=== PATIENT | female | born 1990 | race Caucasian/White ===

== ENCOUNTER 2016-10-15 12:39 | Emergency (ER) | payer SELFPAY ==
[~2016-10-15] VITALS: Ht 170.2 cm; Wt 53.0 kg
[~2016-10-15 12:39] MED LIST: MAGICADU2 SWISH-SWAL
[2016-10-15 12:59] VITALS: BP 123/92; PULSE 71; RESP 16; TEMP 98.6; O2SAT 98
--- NOTE | 2016-10-15 13:55 | PD ---
HPI Chief Complaint: ENT Complaint Time Seen by Provider: 13:49 Travel History International Travel<30 days: No Contact w/Intl Traveler<30days: No Traveled to known affect area: No History of Present Illness HPI Patient states she began having pain with fever approximately 3 weeks ago in her left ear. Fever has since resolved and began having yellow and clear drainage from her left ear 2 weeks ago. Denies any change in hearing or radiation of the pain. Denies any difficulty swallowing, cough, shortness of breath, chest pain, or headache. Denies anything making it better. States drainage is primarily occurring at night while she is lying down. PFSH Past Medical History Hx Anticoagulant Therapy: No Anxiety: Yes Depression: Yes Chest Pain: Yes Diminished Hearing: No Immunizations Current: Yes Tetanus Vaccination: > 5 Years Influenza Vaccination: No ?: Not LMP: 3 DAYS Menopausal: No Past Surgical History Surgical History: No Previous Surgery Social History Alcohol Use: Yes (OCCAS-MIX DRINKS ,BEER) Tobacco Use: Yes (09/03 ppd) Substance Use: No Allergies-Medications (Allergen,Severity, Reaction): Coded Allergies: No Known Allergies (Verified , 10/15/16) Reported Meds & Prescriptions Reported Meds & Active Scripts Active Amoxicillin 875 Mg Tab 875 Mg PO BID 10 Days Magic Mouthwash Adult Liq (Multi-Ingredient Mouthwash/Gargle) 120 Ml Susp 10 Ml SWISH-SWAL ACHS Each 5 mL contains: Diphenhydramine 4.25 mg, Viscous Lidocaine 10 mg, Melendrez syrup. Review of Systems Except as stated in HPI: all other systems reviewed are Neg Physical Exam Narrative GENERAL: Well-developed, well nourished, in no acute distress, and non-ill appearing. SKIN: Warm and dry. HEAD: Atraumatic. Normocephalic. EYES: Pupils equal and round. EOMI. No scleral icterus. No injection or drainage. ENT: No nasal bleeding or discharge. Mucous membranes pink and moist. Auditory canals are clear bilaterally with scant cerumen noted. Left tympanic membrane moderately erythematous, bulging, with air bubbles noted. NECK: Trachea midline. No cervical lymphadenopathy. Supple. No nuclear rigidity. RESPIRATORY: No accessory muscle use. No respiratory distress. MUSCULOSKELETAL: No obvious deformities. No clubbing. No cyanosis. No edema. Full range of motion. NEUROLOGICAL: Awake and alert. No obvious cranial nerve deficits. Motor grossly within normal limits. Normal speech. PSYCHIATRIC: Appropriate mood and affect; insight and judgment normal. Data Data Last Documented VS Vital Signs Date Time Temp Pulse Resp B/P Pulse Ox O2 Delivery O2 Flow Rate FiO2 10/15/16 12:59 98.6 71 16 123/92 98 [facility] Medical Decision Making Medical Screen Exam Complete: Yes Emergency Medical Condition: Yes Differential Diagnosis Otitis media, otitis externa, otalgia, ruptured tympanic membrane, other Narrative Course Patient looks great, non-ill appearing. The patient is tolerating fluids and is well hydrated. Appears simple otitis media. No clinical evidence by history or evaluation to suspect meningitis and/or sepsis, nor malignant OE or mastoiditis. I discussed with the patient, diagnosis, plan of care and to follow up with the patients primary physician within the next week. The patient was instructed to return if worsens in anyway, especially if increased pain, persistent fever, worsening headache neck pain or as needed. The patient agreed with plan. Patient in no obvious distress upon re-evaluation. Patient was asked if they wanted to speak to my attending, which the patient did not wish to do at this time. Any questions/concerns in reference to patient diagnosis/condition discussed and clarified prior to patient's discharge. Reinforced sheer importance of close follow up with patient's primary physician or primary care clinic. Instructed patient to return to ED immediately, if symptoms return/ worsen. Pt showed understanding of above instructions. Further instructions and recommendations were detailed in discharge paperwork. Pt ambulated without difficulty out of ED at discharge. Diagnosis Primary Impression: Otitis media Qualified Code: H66.92 - Left otitis media, unspecified chronicity, unspecified otitis media type Referrals: Manan Sneed MD Patient Instructions: General Instructions, Otitis Media (ED) Additional Instructions: Follow-up with your primary care physician and/or ENT next week for reevaluation. Take all medication as prescribed. Return to the emergency department if symptoms get worse. Med/Other Pt SpecificInfo: Prescription(s) given Scripts Amoxicillin 875 Mg Rsy707 Mg PO BID 10 Days Ref 0 Prov:MorilloAngelita Adiel DO 10/15/16 Disposition: 01 DISCHARGE HOME Condition: Stable Reese Mcfadden Oct 15, 2016 13:55
[2016-10-15] MEDS ORDERED: AMOX875T PO (13:56)
== END 2016-10-15 14:17 | disposition home or self-care (01) ==
LOC: PHEFT 12:39
DX: H66.92 Otitis media, unspecified, left ear (principal); F17.200 Nicotine dependence, unspecified, uncomplicated
CPT/HCPCS: 99283

== ENCOUNTER 2017-01-26 21:19 | Emergency (ER) | payer SELFPAY ==
[~2017-01-26] VITALS: Ht 170.2 cm; Wt 51.6 kg
[~2017-01-26 21:19] MED LIST changes: +AMOX875T PO
[2017-01-26 21:32] VITALS: BP 109/78; PULSE 95; RESP 12; TEMP 99; O2SAT 97
[2017-01-26] MEDS ORDERED: TETANUS/DIPHTHERIA TOXOID ADULT 0.5 ML VIAL IM ONE (21:45)
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
== END 2017-01-26 22:12 | disposition home or self-care (01) ==
LOC: PHEFT 21:19
DX: S00.12XA Contusion of left eyelid and periocular area, initial encounter (principal); S40.211A Abrasion of right shoulder, initial encounter; S10.91XA Abrasion of unspecified part of neck, initial encounter; S50.311A Abrasion of right elbow, initial encounter; F17.200 Nicotine dependence, unspecified, uncomplicated; F41.9 Anxiety disorder, unspecified; F32.9 Major depressive disorder, single episode, unspecified; Y04.8XXA Assault by other bodily force, initial encounter; Z23 Encounter for immunization
CPT/HCPCS: 90471; 90714

== ENCOUNTER 2017-02-03 09:19 | Emergency (ER) | payer SELFPAY ==
[~2017-02-03] VITALS: Ht 170.2 cm; Wt 52.5 kg
[~2017-02-03 09:19] MED LIST changes: -MAGICADU2 SWISH-SWAL
[2017-02-03 09:25] VITALS: BP 125/71; PULSE 73; RESP 16; TEMP 98.5; O2SAT 100
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
[2017-02-03] MEDS ORDERED: TRAM50TA PO (10:32)
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
== END 2017-02-03 10:49 | disposition home or self-care (01) ==
LOC: PHED 09:19
DX: S20.211A Contusion of right front wall of thorax, initial encounter (principal); F17.210 Nicotine dependence, cigarettes, uncomplicated; Y04.8XXA Assault by other bodily force, initial encounter; W22.8XXA Striking against or struck by other objects, initial encounter; Y93.9 Activity, unspecified; Y92.9 Unspecified place or not applicable; Y99.8 Other external cause status
CPT/HCPCS: 71020; 84703; 99283